=== PATIENT | female | born 1960 | race Caucasian/White ===

== ENCOUNTER 2021-08-25 18:01 | Emergency (ER) | payer OTHER, SELFPAY ==
[2021-08-25 18:02] VITALS: BP 121/72; PULSE 67; RESP 16; TEMP 36.2; O2SAT 100; BMI 35.1
--- NOTE | 2021-08-25 18:35 | ED.VIS.LOWEX ---
HPI History of Present Illness HPI Narrative: Right lower leg swelling and redness. Also wants to be checked for possible UTI. Chief Complaint: Lower Extremity Injury Informant: patient Onset/Context/Timing Onset: Days Context: Gradual Onset Timing: Continuous Current Severity: Mild Maximum Severity: Mild Associated Symptoms Associated Symptoms: Negative for Parasthesia, Weakness and Loss of Funtion Narrative Narrative: 61-year-old female from [place] visiting this area. Has had recent falls which are being evaluated by her primary care physician. She has had x-rays of her right lower extremity which were negative. Today she was seen in urgent care because she developed swelling and redness to her right lower leg. They want her ruled out for a DVT and wanted an ultrasound to be done. She also is concerned she might be having a UTI. She denies dysuria. She denies fever. She is never had a DVT or PE she has recently flown from the [facility] to [place]. Patient is a history of mild lupus and celiac disease. Prior similar symptoms: No Recent Illness/Hospitalization: No PFSH PFSH Medical History (Updated 08/25/21 @ 18:59 by Ines Pollock) Asthma Bladder disease or syndrome Celiac disease Lupus Mitral valve prolapse Home Medications albuterol sulfate 2 puff INHALATION Q6H PRN 08/25/21 [History Last Taken Unknown] alpha lipoic acid [Lipoic Acid] 600 mg PO DAILY 08/25/21 [History Last Taken Unknown] amlodipine 10 mg PO DAILY 08/25/21 [History Last Taken Unknown] aspirin 81 mg PO DAILY 08/25/21 [History Last Taken Unknown] cholecalciferol (vitamin D3) [Vitamin D3] 125 mcg PO DAILY 08/25/21 [History Last Taken Unknown] cyanocobalamin (vitamin B-12) 1,000 mcg PO DAILY 08/25/21 [History Last Taken Unknown] cyclobenzaprine [Flexeril] 10 mg PO BID 08/25/21 [History Last Taken Unknown] duloxetine 30 mg PO DAILY 08/25/21 [History Last Taken Unknown] ferrous sulfate 325 mg PO DAILY 08/25/21 [History Last Taken Unknown] furosemide 40 mg PO DAILY 08/25/21 [History Last Taken Unknown] hydroxyzine HCl 25 mg PO BID PRN 08/25/21 [History Last Taken Unknown] ibuprofen 800 mg PO BID 08/25/21 [History Last Taken Unknown] metoprolol succinate 50 mg PO DAILY 08/25/21 [History Last Taken Unknown] montelukast 10 mg PO QHS 08/25/21 [History Last Taken Unknown] omeprazole 40 mg PO DAILY 08/25/21 [History Last Taken Unknown] oxycodone-acetaminophen 1 tab PO Q8H PRN 08/25/21 [History Last Taken Unknown] pentoxifylline 400 mg PO BID 08/25/21 [History Last Taken Unknown] potassium chloride 16 meq PO BID 08/25/21 [History Last Taken Unknown] pregabalin 150 mg PO BID 08/25/21 [History Last Taken Unknown] Allergy/AdvReac Type Severity Reaction Status Date / Time No Known Allergies Allergy Verified 08/25/21 18:04 Social History Smoking Status: Never smoker ROS ROS ED ROS Narrative Right lower leg swelling and mild redness. No vomiting or diarrhea. Covid 1 month ago. Those symptoms resolved. Review of Systems ROS Unobtainable: Denies due to encephalopathy Constitutional Constitutional ED: Denies fever(s) Eyes Eyes: Denies change in vision ENT ENT ED: Denies ear pain or sore throat Cardiovascular Cardiovascular: Denies chest pain Respiratory/Chest Respiratory/Chest: Denies cough or dyspnea Gastrointestinal Gastrointestinal: Denies abdominal pain, diarrhea, nausea or vomiting Genitourinary Genitourinary ED: Denies dysuria Musculoskeletal Musculoskeletal: Denies myalgias Integumentary Denies rash Neurologic Neurologic: Denies headache(s) Psychiatric Psychiatric: Denies depression Endocrine Endocrinology: Denies polyuria Hematologic/Lymphatic Hematologic/Lymphatic: Denies easy bruising EXAM Physical Exam Narrative Exam Narrative: 7-year-old female no acute distress vital signs stable afebrile. Pulse ox on percent room air no hypoxia. HEENT exam unremarkable. Moist remembers. Neck nontender no lymphadenopathy. Lungs clear to auscultation bilaterally. Heart regular rhythm no murmur. Abdomen soft nontender. Moving all 4 extremities. Neurovascularly intact. Right lower leg has focal areas of folliculitis possibly early cellulitis with redness and mild tenderness and warmth. The right lower leg is mildly swollen compared to the left. There is no cord. She is able to flex and extend her right hip knee and ankle. There is no bony deformity or tenderness. Right foot is neurovascular intact with normal DP pulse. She is able to wiggle her toes. Normal touch sensation. Const Vital Signs: 08/25/21 18:02 Temperature 97.2 F L Temperature Source Temporal Pulse Rate 67 Respiratory Rate 16 Blood Pressure 121/72 H Blood Pressure Mean 88 Pulse Ox 100 Oxygen Delivery Method Room Air Positive well nourished, well developed and obese; Negative for cachectic, contractures or unkempt General Appearance ED: well developed and NAD; Negative for unkempt, cachectic or contractures Nutritional Appearance: obese; Negative for cachectic HEENT Reports moist mucous membranes normocephalic and atraumatic; Negative for trauma or tenderness Eyes PERRL Neck full ROM and supple Thyroid: Negative for tender Chest Wall inspection of chest normal and palpation of chest normal Resp normal respiratory effort, no retractions and clear to auscultation bilaterally Auscultation: Negative for rales, rhonchi or wheezes Cardio regular rate, regular rhythm, S1 normal heart sound, S2 normal heart sound and no murmurs GI non-tender, non-distended and no masses Auscultation: normoactive bowel sounds Palpation: soft; Negative for tender or guarding Back/Spine no CVA tenderness General Back: Negative for CVA tenderness Cervical Spine: Negative for cervical spine tenderness Thoracic Spine / Upper Back: Negative for thoracic spinal tenderness Extremity normal to inspection and full ROM Extremity Narrative: Except right lower extremity has areas of cellulitis, redness and warmth. Mild tenderness. No bony deformity. Right foot is neurovascular intact. Mild swelling. General Extremety ED: Negative for cyanosis General Extremity: Negative for cyanosis Neuro oriented x3 and moves all extremities Sensorium / Orientation: alert, oriented to person, oriented to place and oriented to time; Negative for orientation impaired, confused, lethargic or stuporous Motor Exam: strength 5/5 throughout Psych mental status grossly normal Appearance: Negative for unkempt Mood & Affect: Negative for anxious Skin No no wounds Skin Narrative: Right lower leg cellulitis. Lesions: no lesions Rashes: No no rashes Trauma: Negative for abrasion MDM MDM MDM Narrative Medical decision making narrative: Female presents right lower leg pain and swelling most likely cellulitis. Urgent care did an x-ray which reportedly was negative for any foreign body in her foot. Ultrasound could not be obtained due to her recent travel but I think this is a cellulitis and not a DVT clinically. We will see what the ultrasound shows. She also requested a urinalysis to be done. Repeat exam unchanged. Due to cellulitis in her leg and a UTI she will be started on Keflex 5 mg 4 times a day for 10 days. Follow-up if not improving or return if worse. A urine culture will be sent. Lab Data Attestation: I reviewed the patient's lab results. Lab results narrative: Urinalysis shows urinary tract infection with positive nitrates, 5200 white cells and 2+ bacteria. Culture be sent and she will be started on antibiotics. The venous study of her lower extremity showed no DVT per the auto body repair technician. Labs: Laboratory Results - last 24 hr 08/25/21 19:10 Urine Color Yellow Urine Clarity Clear Urine pH 6.0 Ur Specific [place] 1.015 Urine Protein Negative Urine Glucose (UA) Normal Urine Ketones Negative Urine Occult Blood 10 H Urine Nitrite Positive H Urine Bilirubin Negative Urine Urobilinogen Normal Ur Leukocyte Esterase 500 H Urine RBC 0 SEEN Urine WBC 50-100 SEEN Ur Squamous Epith Cells 0-5 SEEN Urine Bacteria 2+ Urine Mucus 0 SEEN Radiography Diagnostic Testing: Clinical Impression(s) from Imaging Studies Venous Duplex 08/25/21 18:37 IMPRESSION: Normal venous Doppler ultrasound of the lower extremity. Electronically Signed: Trevor Bullard MD at 19:50 EST Tel , Service support , Discharge Plan Triage Chief Complaint: Lower Extremity Injury ED Provider: Ck Olivarez Dx/Rx/DC Orders Prescriptions: No Action cyclobenzaprine [Flexeril] 10 mg Tablet 10 mg PO BID RF: 0 furosemide 40 mg Tablet 40 mg PO DAILY RF: 0 ibuprofen 800 mg Tablet 800 mg PO BID RF: 0 aspirin 81 mg Capsule,Delayed Release(Dr/Ec) 81 mg PO DAILY RF: 0 amlodipine 10 mg Tablet 10 mg PO DAILY RF: 0 ferrous sulfate 325 mg (65 mg iron) Tablet 325 mg PO DAILY RF: 0 hydroxyzine HCl 25 mg Tablet 25 mg PO BID PRN (Reason: Anxiety) RF: 0 albuterol sulfate 90 mcg/actuation Hfa Aerosol Inhaler 2 puff INHALATION Q6H PRN (Reason: sob) RF: 0 duloxetine 30 mg Capsule,Delayed Release(Dr/Ec) 30 mg PO DAILY RF: 0 metoprolol succinate 50 mg Tablet Extended Release 24 Hr 50 mg PO DAILY RF: 0 omeprazole 40 mg Capsule,Delayed Release(Dr/Ec) 40 mg PO DAILY RF: 0 pentoxifylline 400 mg Tablet Extended Release 400 mg PO BID RF: 0 potassium chloride 8 mEq Tablet Extended Release 16 meq PO BID RF: 0 oxycodone-acetaminophen 10-325 mg Tablet 1 tab PO Q8H PRN (Reason: Pain) RF: 0 montelukast 10 mg Tablet 10 mg PO QHS RF: 0 pregabalin 150 mg Capsule 150 mg PO BID RF: 0 alpha lipoic acid [Lipoic Acid] 100 mg Capsule 600 mg PO DAILY RF: 0 cholecalciferol (vitamin D3) [Vitamin D3] 125 mcg (5,000 unit) Tablet 125 mcg PO DAILY RF: 0 cyanocobalamin (vitamin B-12) 1,000 mcg Capsule 1,000 mcg PO DAILY RF: 0 Primary Care Provider: [facility] Doctor,Out of
--- NOTE | 2021-08-25 18:37 | US_ITS ---
STUDY: VENOUS DOPPLER ULTRASOUND - RIGHT LOWER EXTREMITY REASON FOR EXAM: Female, 61 years old. RT CALF PAIN AND REDNESS TECHNIQUE: Ultrasound evaluation of the deep vein system to include helms-scale imaging and compression was performed. Helms-scale imaging and Doppler sonographic evaluation, including duplex spectral analysis and qualitative color flow sonography, was performed. COMPARISON: None. FINDINGS: Common Femoral Vein: Normal compression, spontaneity and augmentation. Normal color Doppler. Common Femoral Vein/Greater Saphenous Junction: Normal compression, spontaneity and augmentation. Normal color Doppler. Deep Femoral Vein: Normal compression, spontaneity and augmentation. Normal color Doppler. Femoral Proximal: Normal compression, spontaneity and augmentation. Normal color Doppler. Femoral Middle: Normal compression, spontaneity and augmentation. Normal color Doppler. Femoral Distal: Normal compression, spontaneity and augmentation. Normal color Doppler. Popliteal Vein: Normal compression, spontaneity and augmentation. Normal color Doppler. Posterior Tibial Vein: Normal compression, spontaneity and augmentation. Normal color Doppler. Peroneal Vein: Normal compression, spontaneity and augmentation. Normal color Doppler. US/Venous Duplex Imag/Limited/Uni IMPRESSION: Normal venous Doppler ultrasound of the lower extremity. Electronically Signed: Trevor Bullard MD at 19:50 EST Tel , Service support ,
[2021-08-25] MEDS: Cephalexin 250 MG Capsule 500 MG PO (18:56)
[2021-08-25 19:22] LABS: Mucous, Urine 0 SEEN /hpf (<or=2+); Red Blood Cells-Urine 0 SEEN /hpf (0-5)
[2021-08-25 19:24] LABS: Color, Urine Yellow (Yellow); Glucose, Dipstick Normal (Normal); Ketone-Dipstick Negative (Negative); Leukocyte Esterase-Dipstick 500 /ul (Negative); Nitrite-Dipstick Positive (Negative); Occult Blood-Urine 10 /ul (Negative); Protein-Dipstick Negative (Negative); Specific Gravity, Urine 1.015 (1.002-1.030); Urine Bilirubin Dipstick Negative (Negative); Urine Clarity Clear (Clear); Urine Urobilinogen Normal (Normal)
[2021-08-25 19:39] LABS: Bacteria 2+ /hpf (None Seen); Squamous Epithelial Cells - UA 0-5 SEEN /hpf (5-10); White Blood Cells 50-100 SEEN /hpf (0-5)
== END 2021-08-25 20:30 | disposition home or self-care (01) ==
PROVIDERS: Emergency Provider Emergency Medicine
DX: L03.115 Cellulitis of right lower limb (principal); N39.0 Urinary tract infection, site not specified; M32.9 Systemic lupus erythematosus, unspecified; K90.0 Celiac disease; I34.1 Nonrheumatic mitral (valve) prolapse; J45.909 Unspecified asthma, uncomplicated; E66.9 Obesity, unspecified; Z79.82 Long term (current) use of aspirin; Z79.1 Long term (current) use of non-steroidal anti-inflammatories (NSAID); Z79.899 Other long term (current) drug therapy; Z86.16 Personal history of COVID-19
CPT/HCPCS: 81001; 87077; 87086; 87088; 87186; 93971; 99282

== ENCOUNTER 2023-04-28 13:21 | Emergency (ER) | payer OTHER, SELFPAY ==
[2023-04-28 13:22] VITALS: BP 162/62; PULSE 76; RESP 14; TEMP 36.6; O2SAT 99; BMI 26.4
--- NOTE | 2023-04-28 14:04 | EX.ED.DYSGE1 ---
HPI History of Present Illness Chief Complaint: Lower Extremity Injury [facility] Medical History (Updated 04/28/23 @ 16:[address] Toro Serrano, DO) Asthma Bladder disease or syndrome Celiac disease Lupus Mitral valve prolapse Home Medications albuterol sulfate 90 mcg/actuation aerosol inhaler 2 puff inhalation Q6H PRN sob 08/25/21 [History Last Taken Unknown] alpha lipoic acid 100 mg capsule 600 mg PO DAILY 08/25/21 [History Last Taken Unknown] amlodipine 10 mg tablet 10 mg PO DAILY 08/25/21 [History Last Taken Unknown] aspirin 81 mg capsule,delayed release 81 mg PO DAILY 08/25/21 [History Last Taken Unknown] cephalexin 500 mg capsule 500 mg PO Q6H 10 days #40 caps 08/25/21 [Rx Last Taken Unknown] cholecalciferol (vitamin D3) 125 mcg (5,000 unit) tablet (Vitamin D3) 125 mcg PO DAILY 08/25/21 [History Last Taken Unknown] cyanocobalamin (vitamin B-12) 1,000 mcg capsule 1,000 mcg PO DAILY 08/25/21 [History Last Taken Unknown] cyclobenzaprine 10 mg tablet 10 mg PO BID 08/25/21 [History Last Taken Unknown] duloxetine 30 mg capsule,delayed release 30 mg PO DAILY 08/25/21 [History Last Taken Unknown] ferrous sulfate 325 mg (65 mg iron) tablet 325 mg PO DAILY 08/25/21 [History Last Taken Unknown] furosemide 40 mg tablet 40 mg PO DAILY 08/25/21 [History Last Taken Unknown] hydroxyzine HCl 25 mg tablet 25 mg PO BID PRN Anxiety 08/25/21 [History Last Taken Unknown] ibuprofen 800 mg tablet 800 mg PO BID 08/25/21 [History Last Taken Unknown] metoprolol succinate 50 mg tablet,extended release 24 hr 50 mg PO DAILY 08/25/21 [History Last Taken Unknown] montelukast 10 mg tablet 10 mg PO QHS 08/25/21 [History Last Taken Unknown] omeprazole 40 mg capsule,delayed release 40 mg PO DAILY 08/25/21 [History Last Taken Unknown] oxycodone-acetaminophen 10 mg-325 mg tablet 1 tab PO Q8H PRN Pain 08/25/21 [History Last Taken Unknown] pentoxifylline 400 mg tablet,extended release 400 mg PO BID 08/25/21 [History Last Taken Unknown] potassium chloride 8 mEq tablet,extended release 16 meq PO BID 08/25/21 [History Last Taken Unknown] pregabalin 150 mg capsule 150 mg PO BID 08/25/21 [History Last Taken Unknown] Allergy/AdvReac Type Severity Reaction Status Date / Time No Known Allergies Allergy Verified 08/25/21 18:04 Social History Smoking Status: Never smoker EXAM Physical Exam Const Vital Signs: 04/28/23 13:22 04/28/23 15:58 Temperature 98 F Temperature Source Temporal Pulse Rate 76 76 Respiratory Rate 14 16 Blood Pressure 162/62 H 117/69 Blood Pressure Mean 95 85 Pulse Ox 99 97 Oxygen Delivery Method Room Air Room Air MDM MDM MDM Narrative Medical decision making narrative: HISTORY OF PRESENT ILLNESS: 62-year-old female here with right knee pain. Notes this has been ongoing for the better part several weeks. Notes she recent moved from [place]. She noted swelling in her left leg which prompted her visit today. She thinks there is something behind her knee as well. Denies any falls or recent trauma. Notes history of arthritis and she is scheduled to get a knee replacement. She also endorses diarrhea but denies any abdominal pain recent antibiotics or new foods or travel to foreign country. She also notes acute on chronic left shoulder pain with no obvious trauma. REVIEW OF SYSTEMS: Pertinent positives: Knee pain, diarrhea Pertinent negatives: Weakness, abdominal pain PHYSICAL EXAM: Nursing triage notes reviewed, Vital signs reviewed Constitutional: please see mdm HENT: MMM Eyes: Pupils equal round and reactive to light, Extraocular muscles intact Neck: No stridor, no JVD, full neck ROM Lungs: Clear to auscultation, No wheezing or rales. No increased work of breathing, no conversational dyspnea, no accessory muscle use, no nasal flaring. No respiratory distress noted Heart: Regular rate and rhythm, No murmurs, No rubs and No gallops, 2+ distal pulses (radial, femoral, posterior tibial) in all extremities Abdomen: Soft, there is no tenderness, rigidity, rebound or guarding, no obvious peritoneal signs, no palpable pulsatile abdominal masses, no auscultated abdominal bruit : No CVAT Extremities Right lower extremity edematous compared to left, no calf tenderness, full range of motion in knee flexion extension, compartments are soft, pulses are intact and symmetric. Intact quadriceps tendon complex. Left shoulder with TTP over the anterior deltoid, is no obvious step-off deformity. There is no trauma. Neuro: Intact sensation L1-S1 dermatomal distributions. Intact 5/5 strength in hip flexion (T12-L3). Knee extension (L2-L4). Ankle dorsiflexion (L4-L5). Ankle plantar flexion (S1). Great toe extension (L5). 2+ patellar and Achilles DTRs. Intact 5/5 strength with ok sign (median), intact finger abduction (ulnar) intact wrist extension (radial n). Intact sensation in the radial, ulnar, and median nerve distributions. Skin: No rash or lesions noted MEDICAL DECISION MAKING: Chief Complaint: Knee pain External records reviewed: No recent advanced imaging of the involved extremity ALL IMAGES (IF OBTAINED) HAVE BEEN PERSONALLY REVIEWED AND INTERPRETED BY MYSELF. MDM Narrative: Patient was hemodynamically stable, afebrile, nontoxic-appearing. Exam was not consistent with septic arthritis, necrotizing fasciitis or cellulitis. Obtained an x-ray to rule out bony abnormality. I obtained ultrasound rule out DVT. 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 X-ray shows degenerative arthritis. I suspect these are the cause of patient's knee pain. I have a low suspicion of septic arthritis at this time. (Pain is not on reports exam, she has good range of motion and no obvious large effusion). In terms of patient reported diarrhea she had no vital sign abnormalities, benign abdominal exam she not appear clinically dehydrated. Patient was unable to provide a stool sample initially however prior to discharge she stated she can provide a stool sample. Enteric pathogens were ordered. This will be followed up as an outpatient with her PCP or if enteric pathogen panel comes back positive we will give her a call to give appropriate antimicrobial therapy. In terms of patient's left shoulder pain Evalose patient for fracture dislocation given lack of trauma. She had a nonfocal exam. Likely acute on chronic arthritis and or inflammatory disease. The patient and/or family, caregivers express understanding. The patient and/or family, caregivers agrees with the plan. Shared decision making: I will have a discussion with the patient and or visitors regarding risk/benefits of further testing or admission. They will be made aware of of the risk/benefits inherent in this decision they will be given the opportunity to voice understanding. Total critical care time today provided was at least 0 [] minutes. This excludes separately billable procedures. Critical care time (if documented) is secondary to the patient having high probability of clinically significant/life threatening deterioration in the patient's condition which required my urgent intervention. Radiography Diagnostic Testing: Clinical Impression(s) from Imaging Studies Knee X-Ray 04/28/23 15:20 IMPRESSION: Degenerative arthrosis. Electronically Signed: Miguel Angel Carrillo MD at 15:42 EDT , Discharge Plan Triage Chief Complaint: Lower Extremity Injury ED Provider: Toro Serrano Dx/Rx/DC Orders Clinical Impression: De Leon cyst, Arthritis of knee, Diarrhea Prescriptions: No Action cyclobenzaprine [Flexeril] 10 mg Tablet 10 mg PO BID furosemide 40 mg Tablet 40 mg PO DAILY ibuprofen 800 mg Tablet 800 mg PO BID aspirin 81 mg Capsule,Delayed Release(Dr/Ec) 81 mg PO DAILY amlodipine 10 mg Tablet 10 mg PO DAILY ferrous sulfate 325 mg (65 mg iron) Tablet 325 mg PO DAILY hydroxyzine HCl 25 mg Tablet 25 mg PO BID PRN (Reason: Anxiety) albuterol sulfate 90 mcg/actuation Hfa Aerosol Inhaler 2 puff INHALATION Q6H PRN (Reason: sob) duloxetine 30 mg Capsule,Delayed Release(Dr/Ec) 30 mg PO DAILY metoprolol succinate 50 mg Tablet Extended Release 24 Hr 50 mg PO DAILY omeprazole 40 mg Capsule,Delayed Release(Dr/Ec) 40 mg PO DAILY pentoxifylline 400 mg Tablet Extended Release 400 mg PO BID potassium chloride 8 mEq Tablet Extended Release 16 meq PO BID oxycodone-acetaminophen 10-325 mg Tablet 1 tab PO Q8H PRN (Reason: Pain) montelukast 10 mg Tablet 10 mg PO QHS pregabalin 150 mg Capsule 150 mg PO BID alpha lipoic acid [Lipoic Acid] 100 mg Capsule 600 mg PO DAILY cholecalciferol (vitamin D3) [Vitamin D3] 125 mcg (5,000 unit) Tablet 125 mcg PO DAILY cyanocobalamin (vitamin B-12) 1,000 mcg Capsule 1,000 mcg PO DAILY cephalexin 500 mg capsule 500 mg PO Q6H 10 Days Qty: 40 0RF Primary Care Provider: Care Physician,No Primary Referrals: Maged Islas MD [Med Staff - Rn Flight] - Activity Restrictions/Additional Instructions: Thank you for trusting us with your care today! Please take Tylenol (2 pills, 650 mg), ibuprofen (2 pills, 400 mg) every 6 hours as needed for pain and fever control. Please return to the emergency department if your symptoms change or worsen. Please follow with your primary care physician for further outpatient evaluation and management. Disposition Disposition: Home, Self Care
[2023-04-28] MEDS: Ibuprofen 200 MG Tablet 400 MG PO (14:24)
[2023-04-28] MEDS: Oxycodone/Apap 5/325 Tablet PO (14:26)
--- NOTE | 2023-04-28 15:20 | RAD_ITS ---
STUDY: X-RAY - RIGHT KNEE REASON FOR EXAM: Female, 62 years old. Knee pain. Warm to touch. TECHNIQUE: 2 view(s) of the knee. COMPARISON: None. FINDINGS: Normal visualized distal femur. Normal visualized proximal tibia and fibula. Normal proximal tibiofibular articulation. There is mild degenerative arthrosis of the medial femorotibial compartment. There is moderate degenerative arthrosis of the lateral femorotibial compartment with moderate joint space narrowing. Normal patellofemoral articulation. The soft tissue structures are unremarkable. RAD/Knee 1 or 2 Views IMPRESSION: Degenerative arthrosis. Electronically Signed: Miguel Angel Carrillo MD at 15:42 EDT ,
[2023-04-28 15:58] VITALS: BP 117/69; PULSE 76; RESP 16; O2SAT 97
== END 2023-04-28 16:10 | disposition home or self-care (01) ==
PROVIDERS: Emergency Provider Emergency Medicine; Visit Provider Emergency Medicine
DX: M71.21 Synovial cyst of popliteal space [Baker], right knee (principal); M17.11 Unilateral primary osteoarthritis, right knee; R19.7 Diarrhea, unspecified; J45.909 Unspecified asthma, uncomplicated; G89.29 Other chronic pain; Z79.82 Long term (current) use of aspirin; Z79.899 Other long term (current) drug therapy
CPT/HCPCS: 73560; 87506; 93971; 99282

== ENCOUNTER 2023-07-12 22:56 | Emergency (ER) | payer MEDICAID, SELFPAY ==
[2023-07-12 22:57] VITALS: BP 137/67; PULSE 81; RESP 18; TEMP 36.6; O2SAT 96; BMI 24.7
--- NOTE | 2023-07-12 23:25 | EDS_ITS ---
HPI History of Present Illness Chief Complaint: Laceration Informant: patient Onset/Context/Timing Onset: Days Narrative Narrative: Patient presents with superficial laceration to the volar right wrist that occurred 4 days ago. Patient states they recently moved to the area. She was using a ordering box operator with her nondominant hand and cut her right wrist. She states she cleaned the area and has had a dressing in place. The last day or so she has noted some mild bleeding. She is unsure of her last tetanus update. She also complains of acute on chronic left shoulder pain. She had a previous shoulder fracture that required replacement. She has chronic pain to this area and had been in pain management when she lived in [place]. She is awaiting her [place] insurance so she can get set up with doctors in this area. She states the last several days she has had increased pain in her left shoulder, likely due to increased usage. [facility] Medical History (Updated 07/12/23 @ 23:[address] Alicia Betancur MD) Asthma Bladder disease or syndrome Celiac disease Hypertension Lupus Mitral valve prolapse Neuropathy Home Medications albuterol sulfate 90 mcg/actuation aerosol inhaler 2 puff inhalation Q6H PRN sob 08/25/21 [History Last Taken Unknown] alpha lipoic acid 100 mg capsule 600 mg PO DAILY 08/25/21 [History Last Taken Unknown] amlodipine 10 mg tablet 10 mg PO DAILY 08/25/21 [History Last Taken Unknown] aspirin 81 mg capsule,delayed release 81 mg PO DAILY 08/25/21 [History Last Taken Unknown] cephalexin 500 mg capsule 500 mg PO Q6H 10 days #40 caps 08/25/21 [Rx Last Taken Unknown] cholecalciferol (vitamin D3) 125 mcg (5,000 unit) tablet (Vitamin D3) 125 mcg PO DAILY 08/25/21 [History Last Taken Unknown] cyanocobalamin (vitamin B-12) 1,000 mcg capsule 1,000 mcg PO DAILY 08/25/21 [History Last Taken Unknown] cyclobenzaprine 10 mg tablet 10 mg PO BID 08/25/21 [History Last Taken Unknown] duloxetine 30 mg capsule,delayed release 30 mg PO DAILY 08/25/21 [History Last Taken Unknown] ferrous sulfate 325 mg (65 mg iron) tablet 325 mg PO DAILY 08/25/21 [History L ast Taken Unknown] furosemide 40 mg tablet 40 mg PO DAILY 08/25/21 [History Last Taken Unknown] hydroxyzine HCl 25 mg tablet 25 mg PO BID PRN Anxiety 08/25/21 [History Last Taken Unknown] ibuprofen 800 mg tablet 800 mg PO BID 08/25/21 [History Last Taken Unknown] metoprolol succinate 50 mg tablet,extended release 24 hr 50 mg PO DAILY 08/25/21 [History Last Taken Unknown] montelukast 10 mg tablet 10 mg PO QHS 08/25/21 [History Last Taken Unknown] omeprazole 40 mg capsule,delayed release 40 mg PO DAILY 08/25/21 [History Last Taken Unknown] oxycodone-acetaminophen 10 mg-325 mg tablet 1 tab PO Q8H PRN Pain 08/25/21 [History Last Taken Unknown] pentoxifylline 400 mg tablet,extended release 400 mg PO BID 08/25/21 [History Last Taken Unknown] potassium chloride 8 mEq tablet,extended release 16 meq PO BID 08/25/21 [History Last Taken Unknown] pregabalin 150 mg capsule 150 mg PO BID 08/25/21 [History Last Taken Unknown] hydrocodone-acetaminophen 5-325mg 5mg-325mg 1 tab PO Q6H PRN PRN Pain 3 days #10 TABLETS 07/12/23 [Rx Last Taken Unknown] Allergy/AdvReac Type Severity Reaction Status Date / Time No Known Allergies Allergy Verified 07/12/23 23:00 Social History Smoking Status: Never smoker ROS ROS ED Constitutional Constitutional ED: Denies chills or fever(s) Eyes Eyes: Denies change in vision ENT ENT ED: Denies rhinorrhea or sore throat Cardiovascular Cardiovascular: Denies chest pain or palpitations Respiratory/Chest Respiratory/Chest: Denies cough or dyspnea Gastrointestinal Gastrointestinal: Denies abdominal pain, diarrhea or vomiting Musculoskeletal Musculoskeletal: Reports arthralgias Integumentary Reports other Details: Right wrist laceration Hematologic/Lymphatic Hematologic/Lymphatic: Denies easy bleeding or easy bruising Allergic/Immunologic Allergic/Immunologic ED: Denies mouth swelling or tongue swelling EXAM Physical Exam Const Vital Signs: 07/12/23 22:57 Temperature 97.9 F Temperature Source Temporal Pulse Rate 81 Respiratory Rate 18 Blood Pressure 137/67 H Blood Pressure Mean 90 Pulse Ox 96 Oxygen Delivery Method Room Air Positive well nourished and well developed General Appearance ED: well developed HEENT atraumatic Eyes EOMs intact bilaterally Chest Wall inspection of chest normal and palpation of chest normal Resp normal respiratory effort and clear to auscultation bilaterally Cardio regular rhythm Rate: regular rate GI non-tender Extremity Extremity Narrative: Patient has chronic decreased range of motion of the left shoulder. Palpable distal pulses. Mild muscular tenderness over the left shoulder. No erythema or sign of infection. Volar right wrist has a 4 cm long superficial laceration running lengthwise down the forearm. Steri-Strips are in place over the proximal aspect of the laceration. There is very minimal gaping and no active bleeding at this time. Neuro oriented x3 and moves all extremities MDM MDM MDM Narrative Medical decision making narrative: Patient is unsure of her last tetanus update so it is updated tonight. Right wrist laceration is cleansed. A piece of [place] was placed over the wound with gauze pads and an Yoni wrap. Wound care as discussed. In regards to the patient's left shoulder pain I advised her I can only write her a short course of pain medication. I did do an [facility] report. She last had a Percocet prescription in May. I will give her 10 tabs of Aptos. I will go ahead and give her information for PCP, orthopedics, and pain management follow-up. Discharge Plan Triage Chief Complaint: Laceration ED Provider: Alicia Betancur Dx/Rx/DC Orders Clinical Impression: Chronic left shoulder pain, Wrist laceration Instructions: ED Laceration Extremity Prescriptions: New hydrocodone-acetaminophen 5-325 mg tablet 1 tab PO Q6H PRN PRN (Reason: Pain) 3 Days Qty: 10 0RF No Action cyclobenzaprine [Flexeril] 10 mg Tablet 10 mg PO BID furosemide 40 mg Tablet 40 mg PO DAILY ibuprofen 800 mg Tablet 800 mg PO BID aspirin 81 mg Capsule,Delayed Release(Dr/Ec) 81 mg PO DAILY amlodipine 10 mg Tablet 10 mg PO DAILY ferrous sulfate 325 mg (65 mg iron) Tablet 325 mg PO DAILY hydroxyzine HCl 25 mg Tablet 25 mg PO BID PRN (Reason: Anxiety) albuterol sulfate 90 mcg/actuation Hfa Aerosol Inhaler 2 puff INHALATION Q6H PRN (Reason: sob) duloxetine 30 mg Capsule,Delayed Release(Dr/Ec) 30 mg PO DAILY metoprolol succinate 50 mg Tablet Extended Release 24 Hr 50 mg PO DAILY omeprazole 40 mg Capsule,Delayed Release(Dr/Ec) 40 mg PO DAILY pentoxifylline 400 mg Tablet Extended Release 400 mg PO BID potassium chloride 8 mEq Tablet Extended Release 16 meq PO BID oxycodone-acetaminophen 10-325 mg Tablet 1 tab PO Q8H PRN (Reason: Pain) montelukast 10 mg Tablet 10 mg PO QHS pregabalin 150 mg Capsule 150 mg PO BID alpha lipoic acid [Lipoic Acid] 100 mg Capsule 600 mg PO DAILY cholecalciferol (vitamin D3) [Vitamin D3] 125 mcg (5,000 unit) Tablet 125 mcg PO DAILY cyanocobalamin (vitamin B-12) 1,000 mcg Capsule 1,000 mcg PO DAILY cephalexin 500 mg capsule 500 mg PO Q6H 10 Days Qty: 40 0RF Primary Care Provider: Care Physician,No Primary Referrals: Samina Villarreal MD [Med Staff - Active Staff] - As Needed Dexter Langford DO [Med Staff - Firer Watertender] - As Needed Isai Crawford MD [Med Staff - Active Staff] - As Needed Care Physician,No Primary [Primary Care Provider] - Disposition Disposition: Home, Self Care
[2023-07-12] MEDS: HYDROcodone Bitartrate/Apap 5/325 Tablet PO (23:34)
[2023-07-12] MEDS: Diphth,Pertuss(Acell),Tet Vac 0.5 ML Vial IM (23:35)
[2023-07-12 23:43] VITALS: BP 137/67; PULSE 81; RESP 18; O2SAT 96
== END 2023-07-12 23:44 | disposition home or self-care (01) ==
PROVIDERS: Emergency Provider Emergency Medicine; Visit Provider Emergency Medicine
DX: S61.519A Laceration without foreign body of unspecified wrist, initial encounter (principal); W26.8XXA Contact with other sharp object(s), not elsewhere classified, initial encounter; Y93.E6 Activity, residential relocation; Z23 Encounter for immunization; M25.512 Pain in left shoulder; G89.29 Other chronic pain; I10 Essential (primary) hypertension; J45.909 Unspecified asthma, uncomplicated; Z79.82 Long term (current) use of aspirin; Z79.899 Other long term (current) drug therapy
CPT/HCPCS: 90471; 90715; 99282

== ENCOUNTER 2023-09-01 04:07 | Emergency (ER) | payer MEDICAID, SELFPAY ==
[2023-09-01 04:08] VITALS: BP 126/67; PULSE 79; RESP 18; TEMP 36; O2SAT 99; BMI 25.0
--- NOTE | 2023-09-01 04:28 | EX.ED.DYSGE1 ---
HPI History of Present Illness Chief Complaint: Other, Pain/Inj Informant: patient Narrative Narrative: Patient presents with tingling and burning feeling in both of her feet from about the midfoot or ankle on down to the toes. This has been severe for the last 2 weeks. But it sounds like it has been going on for years to some degree. She has been on Lyrica for a long time. She moved from [place] about 5 or 6 months ago. She was also in pain management out there. She was being prescribed 10 325s four times a day for many years while in [place]. She has now been seeing Dr. barney here. She just saw her doctor about 3 days ago for these feet. She states that her doctor ordered like 10 tests and visits with other doctors. Patient also has history of Takotsubo but she is not having chest pain. She is not having dyspnea. She has history of chronic pain related to a crushed left shoulder from about 9 years ago. She also has multiple other issues being worked up such as a slight rise in liver tests, weight loss, De Leon's cyst on the right knee, interstitial cystitis, but none of these are acute or causing her problems right now. Patient has made contact with and has seen Dr. Villarreal locally for pain control. After seeing him she filled a prescription for pain meds that she got from her doctor a few days prior. This caused some difficulties for her. She has signed and is under a pain contract. [facility] Medical History Asthma Bladder disease or syndrome Celiac disease Hypertension Lupus Mitral valve prolapse Neuropathy Home Medications albuterol sulfate 90 mcg/actuation aerosol inhaler 2 puff inhalation Q6H PRN sob 08/25/21 [History Last Taken Unknown] alpha lipoic acid 100 mg capsule 600 mg PO DAILY 08/25/21 [History Last Taken Unknown] amlodipine 10 mg tablet 10 mg PO DAILY 08/25/21 [History Last Taken Unknown] aspirin 81 mg capsule,delayed release 81 mg PO DAILY 08/25/21 [History Last Taken Unknown] cephalexin 500 mg capsule 500 mg PO Q6H 10 days #40 caps 08/25/21 [Rx Last Taken Unknown] cholecalciferol (vitamin D3) 125 mcg (5,000 unit) tablet (Vitamin D3) 125 mcg PO DAILY 08/25/21 [History Last Taken Unknown] cyanocobalamin (vitamin B-12) 1,000 mcg capsule 1,000 mcg PO DAILY 08/25/21 [History Last Taken Unknown] cyclobenzaprine 10 mg tablet 10 mg PO BID 08/25/21 [History Last Taken Unknown] duloxetine 30 mg capsule,delayed release 30 mg PO DAILY 08/25/21 [History Last Taken Unknown] ferrous sulfate 325 mg (65 mg iron) tablet 325 mg PO DAILY 08/25/21 [History Last Taken Unknown] furosemide 40 mg tablet 40 mg PO DAILY 08/25/21 [History Last Taken Unknown] hydroxyzine HCl 25 mg tablet 25 mg PO BID PRN Anxiety 08/25/21 [History Last Taken Unknown] ibuprofen 800 mg tablet 800 mg PO BID 08/25/21 [History Last Taken Unknown] metoprolol succinate 50 mg tablet,extended release 24 hr 50 mg PO DAILY 08/25/21 [History Last Taken Unknown] montelukast 10 mg tablet 10 mg PO QHS 08/25/21 [History Last Taken Unknown] omeprazole 40 mg capsule,delayed release 40 mg PO DAILY 08/25/21 [History Last Taken Unknown] oxycodone-acetaminophen 10 mg-325 mg tablet 1 tab PO Q8H PRN Pain 08/25/21 [History Last Taken Unknown] pentoxifylline 400 mg tablet,extended release 400 mg PO BID 08/25/21 [History Last Taken Unknown] potassium chloride 8 mEq tablet,extended release 16 meq PO BID 08/25/21 [History Last Taken Unknown] pregabalin 150 mg capsule 150 mg PO BID 08/25/21 [History Last Taken Unknown] hydrocodone-acetaminophen 5-325mg 5mg-325mg 1 tab PO Q6H PRN PRN Pain 3 days #10 TABLETS 07/12/23 [Rx Last Taken Unknown] Allergy/AdvReac Type Severity Reaction Status Date / Time No Known Allergies Allergy Verified 09/01/23 04:08 Social History Smoking Status: Never smoker ROS ROS ED Constitutional Constitutional ED: Denies chills or fever(s) Eyes Eyes: Denies blurry vision ENT ENT ED: Denies rhinorrhea Cardiovascular Cardiovascular: Denies chest pain, palpitations or racing heartbeat Respiratory/Chest Respiratory/Chest: Denies cough or dyspnea Gastrointestinal Gastrointestinal: Denies diarrhea, nausea or vomiting Genitourinary Genitourinary ED: Denies dysuria Musculoskeletal Musculoskeletal: Denies myalgias Integumentary Denies rash Neurologic Neurologic: Reports paresthesias and other Details: See history of present illness Endocrine Endocrinology: Denies cold intolerance Hematologic/Lymphatic Hematologic/Lymphatic: Denies easy bleeding or easy bruising Allergic/Immunologic Allergic/Immunologic ED: Denies urticaria EXAM Physical Exam Narrative Exam Narrative: CONSTITUTIONAL: Patient is nontoxic in appearance. The patient looks comfortable. Work of breathing looks normal. HEENT: No notable trauma. Mucous membranes moist. EYES: No conjunctival injection. No icterus is seen at all. NECK:No JVD. No stridor. CARDIOVASCULAR: Regular rate. Regular rhythm. No notable murmur. No JVD. RESPIRATORY: No respiratory distress. Breathing is unlabored. No wheezes. No rhonchi. No rales. No pain with a deep breath. No chest wall tenderness. Saturations are normal at 99% on room air showing no hypoxia. GASTROINTESTINAL: Not distended. Bowel sounds are normal. No tenderness. GENITOURINARY: No CVA tenderness. MUSCULOSKELETAL: Atraumatic. No peripheral edema. No cord. No tenderness along the deep venous system. No asymmetry. No distended veins. There is also no color change. No duskiness. No redness. She has great posterior tibial pulses. She has palpable dorsalis pedis pulses. There is no indication of vascular insufficiency whatsoever. There are no rashes. NEUROLOGICAL: Patient is alert and appropriate. No focal deficit noted. SKIN: No noted rashes. No diaphoresis. PSYCHIATRIC: Patient is calm. Mood is appropriate. Const Vital Signs: 09/01/23 04:08 09/01/23 04:11 Temperature 96.8 F L Temperature Source Temporal Pulse Rate 79 Respiratory Rate 18 Respiratory Pattern Normal Blood Pressure 126/67 H Blood Pressure Mean 86 Pulse Ox 99 MDM MDM MDM Narrative Medical decision making narrative: Patient's electrolytes do show some mild elevation of chloride and mildly low calcium. However, this is not an ionized calcium. With her reported weight loss, it is likely her albumin is a bit lower than normal and her corrected calcium may be normal. But I do not think these small changes are likely causing her symptoms. We were talking about managing this. I explained that managing the long-term medical problems is difficult from the emergency department. I can give her something for pain here but I cannot prescribe controlled substances as that would break her pain contract. She needs to see her family doctor and pain doctor about multiple areas of discomfort and her peripheral neuropathy. She then brought up that she is also having tailbone pain. She evidently broke her coccyx when she was a teenager and then broke it again about 9 years ago when she fell and broke her shoulder. She states since she has been losing weight she has been having pain when she sits down on her coccyx. She states is very inflamed. We examined the area with nurse Saira in the room. There is no sign of pilonidal cyst. No abscess or infection. No inflammation. No redness. She states it is inflamed when you touch it. But there is no sign of acute infection or mass or other issues. I will give the patient oxycodone here. She has multiple issues that are being sorted out. She has 10 follow-up appointments and/or tests that need to be done. She has both a primary physician and pain physician that she is seeing. She has multiple specialist that she is going to be seeing. I think she is safe and appropriate for discharge at this time. Lab Data Attestation: I reviewed the patient's lab results. Labs: Laboratory Results - last 24 hr 09/01/23 04:44 Sodium 144 Potassium 4.2 Chloride 115 H Carbon Dioxide 23.0 Anion Gap 6 BUN 13 Creatinine 0.64 Estim Creat Clear Calc 98.56 Est GFR (MDRD) Af Amer 120 Est GFR (MDRD) Non-Af 99 BUN/Creatinine Ratio 20.2 H Glucose 93 Calcium 7.8 L Discharge Plan Triage Chief Complaint: Other, Pain/Inj ED Provider: Peña Scott Dx/Rx/DC Orders Clinical Impression: Chronic pain, Peripheral neuropathy Instructions: ED Neuropathy, Peripheral Prescriptions: No Action cyclobenzaprine [Flexeril] 10 mg Tablet 10 mg PO BID furosemide 40 mg Tablet 40 mg PO DAILY ibuprofen 800 mg Tablet 800 mg PO BID aspirin 81 mg Capsule,Delayed Release(Dr/Ec) 81 mg PO DAILY amlodipine 10 mg Tablet 10 mg PO DAILY ferrous sulfate 325 mg (65 mg iron) Tablet 325 mg PO DAILY hydroxyzine HCl 25 mg Tablet 25 mg PO BID PRN (Reason: Anxiety) albuterol sulfate 90 mcg/actuation Hfa Aerosol Inhaler 2 puff INHALATION Q6H PRN (Reason: sob) duloxetine 30 mg Capsule,Delayed Release(Dr/Ec) 30 mg PO DAILY metoprolol succinate 50 mg Tablet Extended Release 24 Hr 50 mg PO DAILY omeprazole 40 mg Capsule,Delayed Release(Dr/Ec) 40 mg PO DAILY pentoxifylline 400 mg Tablet Extended Release 400 mg PO BID potassium chloride 8 mEq Tablet Extended Release 16 meq PO BID oxycodone-acetaminophen 10-325 mg Tablet 1 tab PO Q8H PRN (Reason: Pain) montelukast 10 mg Tablet 10 mg PO QHS pregabalin 150 mg Capsule 150 mg PO BID alpha lipoic acid [Lipoic Acid] 100 mg Capsule 600 mg PO DAILY cholecalciferol (vitamin D3) [Vitamin D3] 125 mcg (5,000 unit) Tablet 125 mcg PO DAILY cyanocobalamin (vitamin B-12) 1,000 mcg Capsule 1,000 mcg PO DAILY cephalexin 500 mg capsule 500 mg PO Q6H 10 Days Qty: 40 0RF hydrocodone-acetaminophen 5-325 mg tablet 1 tab PO Q6H PRN PRN (Reason: Pain) 3 Days Qty: 10 0RF Primary Care Provider: Gudelia Orona NP Referrals: Care Physician,No Primary [Non-Staff] - Activity Restrictions/Additional Instructions: Follow-up with your primary physician and Dr. Villarreal Disposition Disposition: Home, Self Care
[2023-09-01 05:11] LABS: Anion Gap 6 (5-15); BUN 13 mg/dL (7-18); BUN/Creat Ratio 20.2 RATIO (10-20); Calcium,Total 7.8 mg/dL (8.5-10.1); Chloride 115 mmol/L (98-107); Creatinine, Serum 0.64 mg/dL (0.55-1.02); EST Glomerular Filtration Rate 99 mL/min (>60); Est Glom Filt Rate - Afr Amer 120 mL/min (>60); Estimated Creatinine Clearance 98.56 ml/min; Glucose 93 mg/dL (74-106); Potassium 4.2 mmol/L (3.5-5.1); Sodium Level 144 mmol/L (136-145)
[2023-09-01] MEDS: oxyCODONE 5 MG Tablet PO (05:59)
[2023-09-01 06:02] VITALS: PULSE 76; RESP 16; O2SAT 96
== END 2023-09-01 06:02 | disposition home or self-care (01) ==
PROVIDERS: Emergency Provider Emergency Medicine; PCP Nurse Practitioner Family; Visit Provider Emergency Medicine
DX: G62.9 Polyneuropathy, unspecified (principal); G89.29 Other chronic pain; M53.3 Sacrococcygeal disorders, not elsewhere classified; E87.8 Other disorders of electrolyte and fluid balance, not elsewhere classified; I10 Essential (primary) hypertension; E83.51 Hypocalcemia; J45.909 Unspecified asthma, uncomplicated; R06.00 Dyspnea, unspecified; Z79.82 Long term (current) use of aspirin; Z79.899 Other long term (current) drug therapy
CPT/HCPCS: 36415; 80048; 99282

== ENCOUNTER 2023-09-03 22:22 | Emergency (ER) | payer MEDICAID, SELFPAY ==
[2023-09-03 22:22] VITALS: BP 100/59; PULSE 72; RESP 18; TEMP 37; O2SAT 98; BMI 24.3
--- NOTE | 2023-09-03 22:36 | RAD_ITS ---
STUDY: X-RAY - RIGHT KNEE REASON FOR EXAM: Female, 63 years old. trauma TECHNIQUE: 4 view(s) of the knee. COMPARISON: None. FINDINGS: There is demineralization of the visualized distal femur. There is demineralization of the tibia and fibula. Normal proximal tibiofibular articulation. There is moderate degenerative arthrosis of the medial femorotibial compartment with moderate joint space narrowing. There is severe degenerative arthrosis of the lateral femorotibial compartment with severe joint space narrowing. There is moderate degenerative arthrosis of the patellofemoral articulation. The soft tissue structures are unremarkable. RAD/Knee 4 or More Views IMPRESSION: 1. No acute fracture or dislocation. 2. Severe arthrosis. Electronically Signed: Vasile Katz MD at 23:30 EST ,
--- NOTE | 2023-09-03 22:36 | CT_ITS ---
INDICATION: right chest wall injuy EXAMINATION: CT CHEST WITHOUT CONTRAST - CT Chest W/O Contrast Injection TECHNIQUE: Helically acquired images were obtained of the chest. A radiation dose optimization technique was used for this scan. IV Contrast dosage and agent: None. COMPARISON: None. FINDINGS: LUNGS, PLEURA AND LARGE AIRWAYS: No masses, consolidation, or edema. No pleural effusion or thickening. No pneumothorax. THYROID: No thyroid lesions. HEART AND PERICARDIUM: Heart size is normal. No pericardial effusion. CORONARY ARTERIES: Coronary artery calcification is not seen. VESSELS: Thoracic aorta is not dilated. MEDIASTINUM AND LIONEL: No mediastinal or hilar adenopathy. Esophagus is unremarkable. No hiatal hernia. UPPER ABDOMEN: Status post cholecystectomy. BONES: Mild dextroscoliosis of the thoracic spine with degenerative disc disease. Status post left shoulder arthroplasty which produces streak artifact obscures the chest. CT/Chest without Contrast IMPRESSION: Negative CT chest without contrast. Electronically Signed: Vasile Katz MD at 23:38 EST ,
--- NOTE | 2023-09-03 22:36 | RAD_ITS ---
STUDY: X-RAY - LEFT FOOT CLINICAL: Female, 63 years old. trauma TECHNIQUE: 3 view(s) of the foot. COMPARISON: None. FINDINGS: Normal talus, calcaneus, and tarsal bones. Small posterior calcaneal enthesophyte. Mild midfoot arthrosis. Normal metatarsi. Normal metatarsophalangeal joint of the great toe. Normal tibial and fibular sesamoid bones. Normal interphalangeal joint of the great toe. Normal phalanges of the great toe. Normal second through fifth metatarsophalangeal joints. Normal interphalangeal joints and phalanges of the lesser toes. The soft tissue structures are unremarkable. RAD/Foot min 3 Views IMPRESSION: No acute fracture or dislocation. Electronically Signed: Vasile Katz MD at 23:31 EST ,
--- NOTE | 2023-09-03 22:37 | EX.ED.GENINJ ---
HPI History of Present Illness Chief Complaint: Fall Informant: patient Narrative Narrative: 63-year-old female presenting to the emergency room with a chief complaint of fall. Patient states that prior to arrival she was taking the trash out the foot where that she had got caught on the step causing her to fall down. She stated inversion injury to the left foot. She notes pain mid lateral. Unable to bear weight. She notes swelling bruising and pain to the right knee. She notes abrasion contusion and pain right lateral elbow. She also notes that the right side of her chest in the mid axillary line hurts from the lower ribs cephalad. It hurts to take a deep breath. She is not coughing up any blood. She denies any head trauma. She takes a aspirin daily. Tetanus Immunization: 5-10 years [facility] Medical History (Updated 09/04/23 @ 00:[address] Braden Riggs, ) Asthma Bladder disease or syndrome Celiac disease Hypertension Lupus Mitral valve prolapse Neuropathy Takotsubo cardiomyopathy Home Medications albuterol sulfate 90 mcg/actuation aerosol inhaler 2 puff inhalation Q6H PRN sob 08/25/21 [History Last Taken Unknown] alpha lipoic acid 100 mg capsule 600 mg PO DAILY 08/25/21 [History Last Taken Unknown] amlodipine 10 mg tablet 10 mg PO DAILY 08/25/21 [History Last Taken Unknown] aspirin 81 mg capsule,delayed release 81 mg PO DAILY 08/25/21 [History Last Taken Unknown] cephalexin 500 mg capsule 500 mg PO Q6H 10 days #40 caps 08/25/21 [Rx Last Taken Unknown] cholecalciferol (vitamin D3) 125 mcg (5,000 unit) tablet (Vitamin D3) 125 mcg PO DAILY 08/25/21 [History Last Taken Unknown] cyanocobalamin (vitamin B-12) 1,000 mcg capsule 1,000 mcg PO DAILY 08/25/21 [History Last Taken Unknown] cyclobenzaprine 10 mg tablet 10 mg PO BID 08/25/21 [History Last Taken Unknown] duloxetine 30 mg capsule,delayed release 30 mg PO DAILY 08/25/21 [History Last Taken Unknown] ferrous sulfate 325 mg (65 mg iron) tablet 325 mg PO DAILY 08/25/21 [History Last Taken Unknown] furosemide 40 mg tablet 40 mg PO DAILY 08/25/21 [History Last Taken Unknown] hydroxyzine HCl 25 mg tablet 25 mg PO BID PRN Anxiety 08/25/21 [History Last Taken Unknown] ibuprofen 800 mg tablet 800 mg PO BID 08/25/21 [History Last Taken Unknown] metoprolol succinate 50 mg tablet,extended release 24 hr 50 mg PO DAILY 08/25/21 [History Last Taken Unknown] montelukast 10 mg tablet 10 mg PO QHS 08/25/21 [History Last Taken Unknown] omeprazole 40 mg capsule,delayed release 40 mg PO DAILY 08/25/21 [History Last Taken Unknown] oxycodone-acetaminophen 10 mg-325 mg tablet 1 tab PO Q8H PRN Pain 08/25/21 [History Last Taken Unknown] pentoxifylline 400 mg tablet,extended release 400 mg PO BID 08/25/21 [History Last Taken Unknown] potassium chloride 8 mEq tablet,extended release 16 meq PO BID 08/25/21 [History Last Taken Unknown] pregabalin 150 mg capsule 150 mg PO BID 08/25/21 [History Last Taken Unknown] hydrocodone-acetaminophen 5-325mg 5mg-325mg 1 tab PO Q6H PRN PRN Pain 3 days #10 TABLETS 07/12/23 [Rx Last Taken Unknown] Allergy/AdvReac Type Severity Reaction Status Date / Time No Known Allergies Allergy Verified 09/03/23 22:24 Social History Smoking Status: Never smoker ROS ROS ED Constitutional Constitutional ED: Denies chills, fever(s) or weight loss Eyes Eyes: Denies change in vision or diplopia ENT ENT ED: Denies ear pain, rhinorrhea or sore throat Cardiovascular Cardiovascular: Reports chest pain; Denies orthopnea, palpitations or racing heartbeat Respiratory/Chest Respiratory/Chest: Denies cough, dyspnea or orthopnea Gastrointestinal Gastrointestinal: Denies abdominal pain, diarrhea, nausea or vomiting Genitourinary Genitourinary ED: Denies dysuria, hematuria or urinary frequency Musculoskeletal Musculoskeletal: Reports other Details: Right elbow right knee left foot injuries ; Denies arthralgias, back pain, myalgias or neck pain Integumentary Reports Abrasions; Denies abscess or rash Neurologic Neurologic: Denies headache(s) or weakness Psychiatric Psychiatric: Denies anxiety, depression, suicidal ideation or suicidal thoughts Endocrine Endocrinology: Denies polydipsia, polyphagia or polyuria Allergic/Immunologic Allergic/Immunologic ED: Denies mouth swelling, tongue swelling or urticaria EXAM Physical Exam Const Vital Signs: 09/03/23 22:22 Temperature 98.6 F Temperature Source Temporal Pulse Rate 72 Respiratory Rate 18 Blood Pressure 100/59 L Blood Pressure Mean 72 Pulse Ox 98 Oxygen Delivery Method Room Air MDM MDM MDM Narrative Medical decision making narrative: Patient's prior ED visits were reviewed. Wounds were cleansed and dressed by nursing. CT of the chest was obtained which demonstrates no obvious rib fracture pulmonary contusion or effusion. My independent interpretation of the plain films of the right elbow is no acute fracture. My independent interpretation of the plain films of the right knee is no acute fracture, degenerative changes noted. My independent interpretation of the plain films of the left foot is no obvious acute fracture. Degenerative changes noted. Patient was offered Motrin and declined stating that she took 3 naproxen prior to arrival. I would recommend ice over the next 48 hours anti-inflammatories and rest. History & Record Review Discussion w/independent historian: Patient Additional record(s) reviewed:: Prior ED visit Radiography Diagnostic Testing: Clinical Impression(s) from Imaging Studies Chest CT 09/03/23 22:36 IMPRESSION: Negative CT chest without contrast. Electronically Signed: Vasile Katz MD at 23:38 EST Reading Location ID and State: [place] [facility] [employer] Tel , Service support , Foot X-Ray 09/03/23 22:36 IMPRESSION: No acute fracture or dislocation. Electronically Signed: Vasile Katz MD at 23:31 EST Reading Location ID and State: [email or web address] [facility] [employer] Tel , Service support , Knee X-Ray 09/03/23 22:36 IMPRESSION: 1. No acute fracture or dislocation. 2. Severe arthrosis. Electronically Signed: Vasile Katz MD at 23:30 EST Reading Location ID and State: [place] [email or web address] [facility] [employer] Tel , Service support , Elbow X-Ray 09/03/23 22:50 IMPRESSION: Normal x-ray examination of the elbow. Electronically Signed: Vasile Katz MD at 23:32 EST , Discharge Plan Triage Chief Complaint: Fall ED Provider: Braden Riggs Dx/Rx/DC Orders Clinical Impression: Chest wall contusion, Abrasion, multiple sites, Fall, Contusion of elbow, right, Contusion of knee, right, Sprain of left foot Prescriptions: No Action cyclobenzaprine [Flexeril] 10 mg Tablet 10 mg PO BID furosemide 40 mg Tablet 40 mg PO DAILY ibuprofen 800 mg Tablet 800 mg PO BID aspirin 81 mg Capsule,Delayed Release(Dr/Ec) 81 mg PO DAILY amlodipine 10 mg Tablet 10 mg PO DAILY ferrous sulfate 325 mg (65 mg iron) Tablet 325 mg PO DAILY hydroxyzine HCl 25 mg Tablet 25 mg PO BID PRN (Reason: Anxiety) albuterol sulfate 90 mcg/actuation Hfa Aerosol Inhaler 2 puff INHALATION Q6H PRN (Reason: sob) duloxetine 30 mg Capsule,Delayed Release(Dr/Ec) 30 mg PO DAILY metoprolol succinate 50 mg Tablet Extended Release 24 Hr 50 mg PO DAILY omeprazole 40 mg Capsule,Delayed Release(Dr/Ec) 40 mg PO DAILY pentoxifylline 400 mg Tablet Extended Release 400 mg PO BID potassium chloride 8 mEq Tablet Extended Release 16 meq PO BID oxycodone-acetaminophen 10-325 mg Tablet 1 tab PO Q8H PRN (Reason: Pain) montelukast 10 mg Tablet 10 mg PO QHS pregabalin 150 mg Capsule 150 mg PO BID alpha lipoic acid [Lipoic Acid] 100 mg Capsule 600 mg PO DAILY cholecalciferol (vitamin D3) [Vitamin D3] 125 mcg (5,000 unit) Tablet 125 mcg PO DAILY cyanocobalamin (vitamin B-12) 1,000 mcg Capsule 1,000 mcg PO DAILY cephalexin 500 mg capsule 500 mg PO Q6H 10 Days Qty: 40 0RF hydrocodone-acetaminophen 5-325 mg tablet 1 tab PO Q6H PRN PRN (Reason: Pain) 3 Days Qty: 10 0RF Primary Care Provider: Gudelia Orona NP Referrals: Gudelia Orona NP, [facility] [Primary Care Provider] -
--- NOTE | 2023-09-03 22:50 | RAD_ITS ---
STUDY: X-RAY - RIGHT ELBOW REASON FOR EXAM: Female, 63 years old. trauma TECHNIQUE: 3 view(s) of the elbow. COMPARISON: None. FINDINGS: Normal visualized humerus, radius and ulna. Normal radiocapitellar and ulnotrochlear articulations. The soft tissue structures are unremarkable. RAD/Elbow min 3 Views IMPRESSION: Normal x-ray examination of the elbow. Electronically Signed: Vasile Katz MD at 23:32 EST ,
[2023-09-04 00:44] VITALS: BP 100/59; PULSE 72; RESP 18; O2SAT 98
== END 2023-09-04 00:45 | disposition home or self-care (01) ==
PROVIDERS: Emergency Provider Emergency Medicine; PCP Nurse Practitioner Family; Visit Provider Emergency Medicine
DX: S93.602A Unspecified sprain of left foot, initial encounter (principal); S50.01XA Contusion of right elbow, initial encounter; S80.01XA Contusion of right knee, initial encounter; S20.20XA Contusion of thorax, unspecified, initial encounter; M25.521 Pain in right elbow; I10 Essential (primary) hypertension; W10.9XXA Fall (on) (from) unspecified stairs and steps, initial encounter; J45.909 Unspecified asthma, uncomplicated; Z79.82 Long term (current) use of aspirin; Z79.899 Other long term (current) drug therapy
CPT/HCPCS: 71250; 73080; 73564; 73630; 99282; A4216